=== PATIENT | female | born 1940 | race Caucasian/White ===

== ENCOUNTER → 2017-01-18 | Outpatient (CLI) | payer OTHER ==
[~2017-01-18] MED LIST: ACETAMINOPHEN PO; ALPRAZOLAM PO; ALPRAZOLAM0.25 MG PO; AMIODARONE HCL400 MG PO; AMITRYPTYLINE PO; AMLODIPINE BESY10 MG PO; ATENOLOL PO; CALTRATE 600+D PO; CENTRUM SILVER PO; CITRACAL + D CA1 TA1 PO; COUMADIN2.5 MG PO; COUMADIN5 MG PO; DITROPAN PO; HYDROCHLOROTHIA25 MG PO; HYDROCHLOROTHIAZIDE PO; LOSARTAN POTAS100 MG PO; LOW DOSE ASPIRI81 M1 PO; SYNTHROID PO; VALSARTAN PO; VITAMIN D31000 UNI1 PO; VITAMIN D31000 UNIT PO; ZETIA PO
--- NOTE | ~2017-01-18 | MY11 ---
[facility] A Service of [facility] RADIOLOGY TEXT RESULTS PATIENT: LORI DE LOS SANTOS LOCATION: [facility] : 38 UNIT #: [id number] AGE: [address]: Terrence Weaver MD SEX: F ORDER DR: [id number] [facility] [address] [place], [place] [address] [id number] MR#: [id number] Acc #: [id number] NAME: LORI DE LOS SANTOS. : 1940 SEX: F STUDY DATE/TIME: 01/18/2017 12:02 UNIT: [facility] ROOM: STUDY DESCRIPTION: MY Mammogram Screening Dig Isiah Attending Physician: Terrence Weaver M.D. Referring Physician: Terrence Weaver M.D. Ordering Physician: Terrence Waever M.D. Primary Care Physician: Terrence Weaver M.D. MEDICAL IMAGING REPORT This report is preliminary unless electronic signature is present EXAM Screening mammogram, 01/18. INDICATIONS 76-year-old with no personal or family history of breast cancer. No current complaints. FINDINGS Routine digital screening views of both breasts were obtained. The study was reviewed with an FDA-approved CAD device. Comparison made with 12/21/15, 12/03/14. Breast parenchyma shows scattered fibroglandular densities. No new masses or suspicious microcalcifications are seen. IMPRESSION Negative mammogram. Routine screen in 1 year recommended. Patients over the age of 40 are entered into a reminder system with target due date for the next mammogram. A result letter will also be sent to the patient. BIRADS: 1 Negative. Dictated by... Arcadio Chaudhry Jr., M.D. THIS IS AN ELECTRONICALLY VERIFIED REPORT Arcadio Chaudhry Jr., M.D. at 01/19/2017 6:10 AM VAL/mukul [facility] A Service [facility] RADIOLOGY TEXT RESULTS PATIENT: LORI DE LOS SANTOS LOCATION: [facility] : 38 UNIT #: [id number] AGE: [address]: Terrence Weaver MD SEX: F ORDER DR: TD: 01/18/2017 15:32 JOB #: [id number] MEDICAL IMAGING REPORT Page 1 of 1 COPY
== END | disposition home or self-care (01) ==
LOC: CWCC 11:30
DX: Z12.31 Encounter for screening mammogram for malignant neoplasm of breast (principal)
CPT/HCPCS: G0202